=== PATIENT | male | born 1970 | race Caucasian/White ===

== ENCOUNTER 2016-04-22 09:19 | Emergency (ER) | payer OTHER, BC ==
[2016-04-22 09:23] VITALS: BP 126/78; PULSE 76; TEMP 98; BMI 33.2
--- NOTE | 2016-04-22 09:51 | PDOC ---
History of Present Illness - General Chief Complaint: Injury Stated Complaint: RT ANKLE PAIN/ DIZZINESS Time Seen by Provider: 04/22/16 09:36 History Source: Patient Exam Limitations: No Limitations - History of Present Illness Initial Comments: CHIEF COMPLAINT: 46 y/o male with right ankle pain s/p injury at work about 2 hours ago. 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 The initial pain made him sweaty and nauseous but that only lasted a few seconds. He was able to walk on the affected foot and was ambulatory to ER. he admits to some swelling. He denies numbness/tingling. Vital signs on arrival are within normal limits. REVIEW OF SYSTEMS: GENERAL/CONSTITUTIONAL: No fever/chills. No weakness. No weight change. HEAD, EYES, EARS, NOSE AND THROAT: No change in vision. No ear pain or discharge. No sore throat.. MUSCULOSKELETAL: +right ankle pain and swelling. No neck or back pain. SKIN: No rash or easy bruising. NEUROLOGIC: No headache, vertigo, loss of consciousness, or loss of sensation. PHYSICAL EXAM: VITAL_SIGNS: within normal limits GENERAL_APPEARANCE: alert, cooperative, no obvious discomfort. MENTAL_STATUS: speech clear, oriented X 3, responds appropriately to questions. NEURO: motor intact and sensory intact in injured extremity. EXTREMITIES: 2+ dorsalis pedis pulse right foot. No TTP of affected right foot or ankle. No crepitus or deformities to affected foot or ankle. Very minimal swelling to lateral malleolus of right ankle. Full flexion and extension of right foot and ankle without pain. Minimal pain elicited with inversion of right ankle. SKIN: warm, dry, good color. Past History - Past Medical History Allergies/Adverse Reactions: Allergies Allergy/AdvReac Type Severity Reaction Status Date / Time No Known Allergies Allergy Verified 04/22/16 09:24 Home Medications: Ambulatory Orders Atorvastatin Ca [Lipitor] 80 mg PO DAILY 04/22/16 Cardiac Disorders: Yes Hypercholesterolemia: Yes - Surgical History Cardiac Surgery: Yes (BYPASS) - Psycho/Social/Smoking Cessation Hx Suicidal Ideation: No Smoking History: Never smoked Information on smoking cessation initiated: No Hx Alcohol Use: No Substance Use Type: None *Physical Exam - Vital Signs Last Vital Signs Temp Pulse Resp BP Pulse Ox 98 F 76 18 126/78 98 04/22/16 09:20 04/22/16 09:20 04/22/16 09:20 04/22/16 09:20 04/22/16 09:20 Medical Decision Making - Medical Decision Making A/P: 46 y/o male with right ankle sprain. No imaging studies necessary at this time. Provided ABELARDO bandage. Offered motrin but patient refused. Provided RICE instructions and suggested he take MOtrin for pain/swelling. Pt instructed to f/u with Ortho in 1 week if no improvement in symptoms and was given a referral. The patient verbalizes understanding of all instructions, has no further questions and is awaiting discharge. *DC/Admit/Observation/Transfer Diagnosis at time of Disposition: Ankle sprain Qualifiers: Encounter type: initial encounter Involved ligament of ankle: unspecified ligament Laterality: right Qualified Code(s): S93.401A - Sprain of unspecified ligament of right ankle, initial encounter - Discharge Dispostion Disposition: HOME Condition at time of disposition: Good - Referrals Referrals: Srinivas Gold MD [Staff Physician] - 1 week - Patient Instructions Printed Discharge Instructions: DI for Ankle Sprain, How To Perform RICE (Rest , Ice, Compress, Elevate) Additional Instructions: Discharge instructions: -Take 600mg of Motrin or Ibuprofen every 6 hours with food for pain/swelling -Use ABELARDO bandage for comfort -Follow RICE instructions -Follow up with Dr. Gold or an Orthopedic doctor of your choice if no improvement in symptoms within 1 week - Post Discharge Activity Work/School Note: Back to Work
== END 2016-04-22 09:57 | disposition home or self-care (01) ==
LOC: JERFT 09:19
DX: S93.401A Sprain of unspecified ligament of right ankle, initial encounter (principal); W17.89XA Other fall from one level to another, initial encounter; Y93.89 Activity, other specified; Y92.410 Unspecified street and highway as the place of occurrence of the external cause; Y99.0 Civilian activity done for income or pay; Z95.1 Presence of aortocoronary bypass graft; E78.00 Pure hypercholesterolemia, unspecified
CPT/HCPCS: 99281-25

== ENCOUNTER 2019-08-24 11:39 | Emergency (ER) | payer OTHER, BC ==
[2019-08-24 11:46] VITALS: BP 126/81; PULSE 75; TEMP 98.2; BMI 33.4
--- NOTE | 2019-08-24 11:46 | PDOC ---
Rapid Medical Evaluation Chief Complaint: Eye Problem Time Seen by Provider: 08/24/19 11:43 Medical Evaluation: Allergies Allergy/AdvReac Type Severity Reaction Status Date / Time No Known Allergies Allergy Verified 04/22/16 09:24 08/24/19 11:44 CC: was using seater grinder on metal and was wearing eyewear but feels like something is in his rt eye. [facility] worker EXam: No FB noted, eomi, Plan: FT Discharge Disposition - Diagnosis Eye injury - Referrals - Patient Instructions - Post Discharge Activity
[2019-08-24] MEDS ORDERED: FLUORESCEIN NA 1 EA STRIP ONE (12:06)
[2019-08-24] MEDS ORDERED: TETRACAINE 0.5% OPHTH SOLN 2 ML BOTTLE ONE (12:06)
--- NOTE | 2019-08-24 12:35 | PDOC ---
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 Patient reported immediately rinsed right eye with warm water and put Visine drops in the eye but symptoms persist persistent feeling of foreign body in right eye. Denies blurry vision or change in vision. Denies contact lens use. Denies any other symptoms Is this a multiple visit Asthma Patient?: No Timing/Duration: 1-3 hours Past History - Medical History Allergies/Adverse Reactions: Allergies Allergy/AdvReac Type Severity Reaction Status Date / Time No Known Allergies Allergy Verified 08/24/19 11:46 Home Medications: Ambulatory Orders Atorvastatin Ca [Lipitor] 80 mg PO DAILY 04/22/16 Cardiac Disorders: Yes COPD: No Hypercholesterolemia: Yes - Surgical History Cardiac Surgery: Yes (BYPASS) - Psycho-Social/Smoking History Smoking History: Current every day smoker Information on smoking cessation initiated: No - Substance Abuse Hx (Audit-C & DAST Scrn) How often the patient has a drink containing alcohol: Never Score: In Men: 4 or > Positive; In Women: 3 or > Positive: 0 Screen Result (Pos requires Nsg. Audit-10AR): Negative Review of Systems - Review of Systems Able to Perform ROS?: Yes Is the patient limited Hebrew proficient: No Constitutional: No: Chills, Fever, Malaise HEENTM: Yes: Symptoms Reported, See HPI, Eye Pain (right eye pain). No: Blurred Vision, Tearing, Recent change in vision, Double Vision, Cataracts, Ear Pain, Ocular Prothesis, Ear Discharge, Nose Pain, Nose Congestion, Tinnitus, Nose Bleeding, Hearing Loss, Throat Pain, Throat Swelling, Mouth Pain, Dental Problems, Difficulty Swallowing, Mouth Swelling, Other Respiratory: No: Symptoms reported Cardiac (ROS): No: Symptoms Reported Musculoskeletal: No: Symptoms Reported Integumentary: No: Symptoms Reported Neurological: No: Symptoms reported, Headache, Pre-Existing Deficit, Dizziness All Other Systems: Reviewed and Negative *Physical Exam - Vital Signs Last Vital Signs Temp Pulse Resp BP Pulse Ox 98.2 F 75 18 126/81 98 08/24/19 11:43 08/24/19 11:43 08/24/19 11:43 08/24/19 11:43 08/24/19 11:43 - Physical Exam 08/24/19 12:33 GENERAL: Well developed, well nourished. Awake and alert. No acute distress. HEENT: Mild right conjunctival erythema. No foreign body seen on conjunctiva or sclera. No foreign body or corneal abrasion on exam with fluorescein stain. Normocephalic, atraumatic. PERRLA, EOMI. No left conjunctival pallor. Sclera are non-icteric. Moist mucous membranes. Oropharynx is clear. NECK: Supple. Full ROM. PULMONARY: No evidence of respiratory distress. MUSCULOSKELETAL Normal range of motion at all joints. SKIN: Warm and dry. Normal capillary refill. No eyelid swelling or erythema NEUROLOGICAL: Alert, awake, appropriate. Gait is normal without ataxia. PSYCHIATRIC: Cooperative. Good eye contact. Appropriate mood General Appearance: Yes: Nourished, Appropriately Dressed. 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 Patient reported immediately rinsed right eye with warm water and put Visine drops in the eye but symptoms persist persistent feeling of foreign body in right eye. Denies blurry vision or change in vision. Denies contact lens use. Denies any other symptoms Exam significant for mild right conjunctival erythema. Extraocular muscle intact. Pupil equal reactive to light bilateral. No evidence of foreign body or corneal abrasion on exam with fluorescein stain and Pagan lamp. Patient sent to the eyewash station to irrigate eye. Patient report improvement of pain with tetracaine drops to the right eye. Reassess after eye irrigation 08/24/19 12:44 Patient reported complete improvement of eye pain. No foreign body seen again on reexamination of the right eye. Patient stable for discharge to continue home Visine drops PRN for eye irritation with ophthalmology follow-up Discharge - Discharge Information Problems reviewed: Yes Clinical Impression/Diagnosis: Eye injury Qualifiers: Encounter type: initial encounter Laterality: right Qualified Code(s): S05.91XA - Unspecified injury of right eye and orbit, initial encounter Foreign body in eye Qualifiers: Encounter type: initial encounter Laterality: right Qualified Code(s): T15.91XA - Foreign body on external eye, part unspecified, right eye, initial encounter Condition: Improved Disposition: HOME - Admission No - Follow up/Referral Referrals: Carmelo Monge MD [Staff Physician] - - Patient Discharge Instructions Patient Printed Discharge Instructions: DI for Foreign Body in the Eye Additional Instructions: Continue with home Visine eyedrops to help with eye irritation. Follow-up referred ophthalmology as needed if symptoms does not improve in 2 days - Post Discharge Activity
== END 2019-08-24 12:39 | disposition home or self-care (01) ==
LOC: JERFT 11:39
DX: T15.91XA Foreign body on external eye, part unspecified, right eye, initial encounter (principal); S05.91XA Unspecified injury of right eye and orbit, initial encounter; Y99.8 Other external cause status
CPT/HCPCS: 99283-25

== ENCOUNTER 2019-10-25 08:32 | Emergency (ER) | payer OTHER, BC ==
[2019-10-25 08:53] VITALS: BP 130/64; PULSE 67; TEMP 98.3; BMI 33.4
[2019-10-25] MEDS ORDERED: DEXAMETHASONE SOD PHOSPHATE 10 MG/1 ML VIAL IM ONE (09:07)
[2019-10-25] MEDS ORDERED: DIPHTH,PERTUSS(ACELL),TET 0.5 ML DISP.SYRIN IM ONE ×2 (09:10→09:29)
--- NOTE | 2019-10-25 09:16 | PDOC ---
History of Present Illness - General Chief Complaint: Bite Stated Complaint: INSECT BITE (RT ARM Time Seen by Provider: 10/25/19 08:55 History Source: Patient Exam Limitations: No Limitations - History of Present Illness Initial Comments: 10/25/19 09:10 49-year-old male past medical history hypertension hyperlipidemia CABG presenting to the ED complaining of right arm rash. Patient states that he works for [employer] and was [place] yesterday and believes he either was bit by something or scratched himself while down there. Patient presents today with right forearm erythema and burning. Pt otherwise denies: fevers, chills, syncope, lightheadedness, dizziness, headaches, neck pain, chest pain, shortness of breath, palpitations, back pain, abdominal pain, nausea, vomiting, diarrhea, constipation. Past History - Medical History Allergies/Adverse Reactions: Allergies Allergy/AdvReac Type Severity Reaction Status Date / Time No Known Allergies Allergy Verified 10/25/19 08:50 Home Medications: Ambulatory Orders Atorvastatin Ca [Lipitor] 80 mg PO DAILY 04/22/16 Cephalexin [Keflex] 500 mg PO TID 5 Days #15 capsule 10/25/19 Clobetasol Propionate [Temovate] 15 gm TP BID #1 tube 10/25/19 Cardiac Disorders: Yes COPD: No Hypercholesterolemia: Yes - Surgical History Cardiac Surgery: Yes (BYPASS) - Psycho-Social/Smoking History Smoking History: Never smoked Information on smoking cessation initiated: No - Substance Abuse Hx (Audit-C & DAST Scrn) How often the patient has a drink containing alcohol: Never Score: In Men: 4 or > Positive; In Women: 3 or > Positive: 0 Screen Result (Pos requires Nsg. Audit-10AR): Negative *Physical Exam - Vital Signs Last Vital Signs Temp Pulse Resp BP Pulse Ox 98.3 F 67 15 130/64 98 10/25/19 08:50 10/25/19 08:50 10/25/19 08:50 10/25/19 08:50 10/25/19 08:50 - Physical Exam 10/25/19 09:11 Gen: AAOx 3, no acute distress, comfortable, no signs of respiratory distress HENT: atraumatic, normocephalic with no laceration or contusion. Nasal mucosa without erythema. Oropharynx without erythema or exudates. Mucous membranes moist. EYES: PERRL, EOM intact, conjunctiva pink NECK: supple; trachea midline; no JVD, no lymphadenopathy, or thyromegaly CV: RRR no murmurs, gallops, or rubs. CHEST: CTA b/l no wheezing, rales or rhonchi ABD: +BS/ND. no TTP; soft, no rebound, no guarding EXTREMITY: no cyanosis or erythema. 2+ dorsalis pedis, posterior tibial, and radial pulse. No pedal edema; no calf swelling or tenderness SKIN: warm and dry, no diaphoresis 6cm area of raised erythema with overlying scratches on the right forearm HEME: no purpura or ecchymosis NEURO: normal speech, CN II-XII intact, sensation intact, normal gait, no cerebellar deficits MS: 5/5 strength in all extremities, FROM intact in all extremities. Medical Decision Making - Medical Decision Making 10/25/19 09:13 49-year-old female right arm rash versus early cellulitis Vital signs stable We will administer dexamethasone as well as Boostrix in the ED We will send patient home on Keflex prophylactically as well as topical steroid Pt appears well and is safe and stable for discharge with strict return precautions including signs and symptoms requring immediate return to the ED Supportive care instructions explained and given to pt. Reasons to return emergently to ER explained and given. Importance of follow up with PMD and other specialists as indicated stressed to pt. Pt verbalized understanding of instructions. Pt to follow up with PMD in 2 days. Discharge - Discharge Information Problems reviewed: Yes Clinical Impression/Diagnosis: Contact dermatitis Qualifiers: Contact dermatitis type: irritant Contact dermatitis trigger: unspecified trigger Qualified Code(s): L24.9 - Irritant contact dermatitis, unspecified cause Condition: Stable Disposition: HOME - Additional Discharge Information Prescriptions: Cephalexin [Keflex] 500 mg PO TID 5 Days #15 capsule Clobetasol Propionate [Temovate] 15 gm TP BID #1 tube - Follow up/Referral - Patient Discharge Instructions Patient Printed Discharge Instructions: DI for Insect Bites and Stings, DI for Contact Dermatitis - Post Discharge Activity Work/Back to School Note: Back to Work
[2019-10-25] MEDS ORDERED: DEXAMETHASONE SOD PHOSPHATE 10 MG/1 ML VIAL ONE (09:29)
== END 2019-10-25 09:39 | disposition home or self-care (01) ==
LOC: JERFT 08:32
PROC: 3E0233Z Introduction of Anti-inflammatory into Muscle, Percutaneous Approach (ICD-10-PCS; principal; 2019-10-25)
PROC: 3E0234Z Introduction of Serum, Toxoid and Vaccine into Muscle, Percutaneous Approach (ICD-10-PCS; 2019-10-25)
DX: L24.9 Irritant contact dermatitis, unspecified cause (principal)
CPT/HCPCS: 90715; 99284-25; J1100

== ENCOUNTER 2022-06-10 11:20 | Emergency (ER) | payer OTHER, BC ==
[2022-06-10 11:29] VITALS: BP 140/94; PULSE 67; RESP 19; TEMP 98.6; BMI 34.2
[2022-06-10] MEDS ORDERED: DIPHTH,PERTUSS(ACELL),TET 0.5 ML DISP.SYRIN IM ONE ×2 (12:01→12:05)
== END 2022-06-10 12:15 | disposition home or self-care (01) ==
LOC: JERFT 11:20
PROC: 3E0234Z Introduction of Serum, Toxoid and Vaccine into Muscle, Percutaneous Approach (ICD-10-PCS; principal; 2022-06-10)
DX: S60.112A Contusion of left thumb with damage to nail, initial encounter (principal); W23.1XXA Caught, crushed, jammed, or pinched between stationary objects, initial encounter
CPT/HCPCS: 73140-TC-LT-FY; 90715; 99284-25